=== PATIENT | female | born 1960 | race Caucasian/White ===

== ENCOUNTER 2017-10-03 05:47 | Outpatient (CLI) | payer OTHER ==
[~2017-10-03] VITALS: Ht 165.1 cm; Wt 88.1 kg
[~2017-10-03 05:47] MED LIST: ASP81TEC PO; ATRV10T PO; BACL10TA PO; BISO1TAB39 PO; BISO1TAB41; BUPR300T; BUPR300T PO; CIPR-225 PO; CPR500T PO; DCS100C PO; DILT120C PO; FLUO15CR4; HYDR-3816 PO; HYDR25TA4 PO; HYOS0.1234; LEVO200T PO; LEVO200T30 PO; LEVO750T39 PO; METF500T4 PO; MONT10TA21 PO; NF-ESOM40C; NF-ESOM40C PO; PHEN200T27 PO; PROM25TA14 PO; PROP1TAB77; SITA100T; SITA100T PO; Synthroid; TRIA1TAB2; TRIA1TAB2 PO; VELVET GLOVE PO; VITA1CAP59 PO
[2017-10-03] MEDS ORDERED: BISO1TAB40 PO (15:05)
[2017-10-03] MEDS ORDERED: SITA1TAB6 PO (15:05)
[2017-10-03] MEDS ORDERED: DULA1.5P2 SQ (15:05)
[2017-10-03] MEDS ORDERED: LEVO200T6 PO ×2 (15:05)
[2017-10-03] MEDS ORDERED: DILT120C53 PO (15:05)
[2017-10-03] MEDS ORDERED: MELO15TA39 PO (15:05)
[2017-10-03] MEDS ORDERED: BUPR300T51 PO (15:05)
[2017-10-03] MEDS ORDERED: TRIM100T PO (15:08)
[2017-10-04] MEDS ORDERED: OMEP20CA12 PO (11:38)
== END 2017-10-03 15:11 ==
LOC: PREOP 05:47
PROVIDERS: ATTEND Internal Medicine
DX: Z01.818 Encounter for other preprocedural examination (principal); R07.9 Chest pain, unspecified; K22.4 Dyskinesia of esophagus

== ENCOUNTER → 2017-10-22 | Outpatient (CLI) | payer OTHER ==
[~2017-10-22] MED LIST changes: +BISO1TAB40 PO; +BUPR300T51 PO; +DILT120C53 PO; +DULA1.5P2 SQ; +LEVO200T6 PO; +MELO15TA39 PO; +OMEP20CA12 PO; +SITA1TAB6 PO; +TRIM100T PO
--- NOTE | 2017-10-23 19:22 | Diagnostic Imaging Report ---
Bilateral screening mammogram 2D views with tomosynthesis. The current study was also evaluated with a Computer Aided Detection (CAD) system. INDICATION: Screening. No current complaints stated on the questionnaire. COMPARISON: 10/04/16. FINDINGS: The breasts are composed of heterogeneously dense parenchyma which may decrease mammographic sensitivity. Benign-appearing calcifications are seen. Allowing for technique and positional differences, no suspicious change is seen. IMPRESSION: No significant change. ACR BI-RADS Category 2: Benign findings. Result letter will be mailed to the patient. Note: At least 10% of breast cancer is not imaged by mammography. Dictated on workstation # [id number]
== END ==
LOC: RAD 13:35
PROVIDERS: ATTEND Family Medicine
DX: Z12.31 Encounter for screening mammogram for malignant neoplasm of breast (principal)
CPT/HCPCS: 77067

== ENCOUNTER → 2019-12-22 | Outpatient (CLI) | payer BC, OTHER ==
[~2019-12-22] MED LIST changes: +HYDR-34 PO; -HYDR-3816 PO; +METF-397 PO; -METF500T4 PO; +OMEP-280 PO; -OMEP20CA12 PO
--- NOTE | 2019-12-22 09:46 | Diagnostic Imaging Report ---
INDICATION: Routine screening. COMPARISON: 10/22/2017 and 10/04/2016. TECHNIQUE: 2D and 3D bilateral screening mammography was performed with CAD. FINDINGS: Scattered fibroglandular densities are identified bilaterally. Benign calcifications are scattered throughout both breasts. No mass or malignant appearing microcalcifications are seen. The axillae are unremarkable. IMPRESSION: No mammographic features suspicious for malignancy are identified. ACR BI-RADS Category 2: Benign findings. Result letter will be mailed to the patient. Note: At least 10% of breast cancer is not imaged by mammography. Dictated by: Dictated on workstation # [id number]
== END ==
LOC: RAD 08:05
PROVIDERS: ATTEND Nurse Practitioner Family
DX: Z12.31 Encounter for screening mammogram for malignant neoplasm of breast (principal)
CPT/HCPCS: 77067

== ENCOUNTER → 2021-02-08 | Outpatient (CLI) | payer BC ==
[~2021-02-08] MED LIST changes: -BUPR300T51 PO; +BUPR300T98 PO; -OMEP-280 PO; +OMEP20CA18 PO
--- NOTE | 2021-02-08 09:10 | Diagnostic Imaging Report ---
INDICATION: Routine screening. COMPARISON: 12/22/2019 and 10/22/2017. TECHNIQUE: 2D and 3D bilateral screening mammography was performed with CAD. FINDINGS: Both breasts remain heterogeneously dense, limiting the sensitivity of mammography. There are benign calcifications scattered throughout both breasts. No mass or malignant appearing microcalcifications are seen. The axillae are unremarkable. IMPRESSION: No mammographic features suspicious for malignancy are identified. ACR BI-RADS Category 2: Benign findings. Result letter will be mailed to the patient. Note: At least 10% of breast cancer is not imaged by mammography. Dictated by: Dictated on workstation # [id number]
== END ==
LOC: RAD 07:45
PROVIDERS: ATTEND Family Medicine
DX: Z12.31 Encounter for screening mammogram for malignant neoplasm of breast (principal)
CPT/HCPCS: 77063; 77067

== ENCOUNTER 2021-09-27 09:45 | Inpatient (IN) | payer BC ==
--- NOTE | 2021-09-13 13:12 | HISTORY AND PHYSICAL ---
DATE OF SERVICE: ADMISSION HISTORY AND PHYSICAL This will be for inpatient admission on 09/27/2021 for right total knee arthroplasty. The patient will require regular inpatient admission for pain management and need for physical therapy. HISTORY: The patient is a 61-year-old female with longstanding right knee pain. She has undergone treatment with arthroscopy, anti-inflammatories and injections without relief. Radiographs reveal severe medial patellofemoral arthrosis. She reports progressive loss of function and because of this, I elected to proceed with surgical intervention. REVIEW OF SYSTEMS: No chest pain, no shortness of breath, no dysuria. PAST MEDICAL HISTORY: Diabetes, fatigue, hypertension, hypothyroidism, sleep apnea. PAST SURGICAL HISTORY: section, carpal tunnel, hysterectomy, knee arthroscopy, sinus ectopic , cholecystectomy, herniorrhaphy. FAMILY HISTORY: Significant for schizophrenia, cardiovascular disease, breast cancer. PRIMARY CARE PROVIDER: Dr. Kaur. MEDICATIONS: NitroMist, Trulicity, Synthroid, Cardizem, Wellbutrin. ALLERGIES: No known drug allergies. SOCIAL HISTORY: The patient denies alcohol and tobacco use. PHYSICAL EXAMINATION: GENERAL: The patient is well developed, well nourished, in no acute distress. HEENT: Normocephalic, atraumatic. Pupils are equal, round, reactive to light. Oropharynx is clear. NECK: Supple, no lymphadenopathy. LUNGS: Clear to auscultation bilaterally. HEART: Regular rate and rhythm. ABDOMEN: Soft, nontender, nondistended. EXTREMITIES: The right knee demonstrates varus alignment. She has marked patellofemoral crepitus with patellar loading. She is tender along the medial femoral epicondyle. She has pain medially with Eros's. Range of motion is 0/0/135. No varus or valgus laxity. Negative anterior and posterior drawer. IMPRESSION: Severe right knee osteoarthritis. PLAN: Right total knee arthroplasty. The risks, benefits, options, ramifications and recovery were discussed at length with the patient. She understands and wishes to proceed. Job ID: [id number] DocumentID: [id number] Dictated Date: 09/13/2021 11:42:01 School Counsellor Date: 09/13/2021 13:12:19 Dictated By: REJI ANTONY MD
[~2021-09-27] VITALS: Ht 162 cm; Wt 76.7 kg
[2021-09-28] MEDS ORDERED: [UNRECOGNIZED DRUG - CODE] TL (15:04)
[2021-09-28] MEDS ORDERED: LEVO137T2 PO (15:04)
[2021-09-28] MEDS ORDERED: LIOTHYSO5 PO (15:04)
[2021-10-11] VITALS (9 sets, daily range): BP systolic 117–160; BP diastolic 65–95
[2021-10-11] MEDS ORDERED: CEFUROXIME INJECTION 1,500 MG in WATER (STERILE) FOR INJECTION 15 ML IV ONE (07:30)
[2021-10-11] MEDS ORDERED: morphine PCA 100 MG/100 ML BAG IV PRN (07:30)
[2021-10-11] MEDS ORDERED: NALOXONE 0.4 MG/ML 1 ML (NARCAN) VIAL IV PRN (07:30)
[2021-10-11] MEDS ORDERED: ONDANSETRON 4 MG/2 ML (SDV) Z0FRAN IVP PRN ×2 (07:30→11:30)
--- NOTE | 2021-10-11 07:36 | Progress Note-Pre Operative ---
Pre-Operative Progress Note H&P Reviewed The H&P was reviewed, patient examined and no changes noted. Date Seen by Provider: Oct 11, 2021 Time Seen by Provider: 07:36 Date H&P Reviewed: Oct 11, 2021 Time H&P Reviewed: 07:11 Pre-Operative Diagnosis: right knee primary osteoarthritis REJI ANTONY MD Oct 11, 2021 07:36
--- NOTE | 2021-10-11 07:37 | Progress Note-Post Operative ---
Post-Operative Progess Note Surgeon (s)/Banking Manager (s) Surgeon REJI ANTONY MD Banking Manager: Skinny Herring Pre-Operative Diagnosis right knee primary osteoarthritis Post-Operative Diagnosis right knee primary osteoarthritis Procedure & Operative Findings Date of Procedure 10/11/21 Procedure Performed/Findings right total knee arthroplasty Anesthesia Type GETA Estimated Blood Loss Estimated blood loss (mL): minimal Specimens/Packing Specimens Removed none Packing: none REJI ANTONY MD Oct 11, 2021 07:37
--- NOTE | 2021-10-11 07:56 | D/C HH Face to Face Order ---
D/C Face to Face Orders Reconcile Patient Problems Problems Reviewed?: Yes Instructions for Patient Via [facility], Patient Instructions/FollowUp: three weeks Physician to follow Patient: three weeks Discharge Diet for Home: Regular Diet Patient Data-Allergies,Ht & Wt Patient Allergies: Coded Allergies: No Known Drug Allergies (Unverified , 10/03/17) Height (Feet): 5 Height (Inches): 5.00 Weight (Pounds): 194 Weight (Ounces): 4.0 Home Health Need/Face to Face Date of Face to Face: Oct 11, 2021 Clinical Findings: Muscle weakness, Pain with ambulation, Unsteady gait I have seen Pt [id number]: Yes Discharged To: Home Diagnosis/Conditions: right total knee arthroplasty Patient is Homebound due to: Muscle weakness, Pain w/ambulation Homebound Status Due to the above stated illness, injury or surgical procedure (medical condition or diagnosis) and associated clinical findings, the patient is homebound because of his/her inability to leave home except with aid of a supportive device and/or person AND leaving the home requires a considerable and taxing effort or is medically contraindicated. Pt req the following assistanc: [facility] Nursing Orders Home Health Services Order: Physical Therapy-Evaluate & Treat DC right knee eugenio and apply steri strips 10/25/21 Therapy Orders Therapy Orders: Physical Therapy, PT to assess for OT Therapy Specific Orders: Eval assistive deivces, Teach enviro modifications/safety, Gait training, Increase strength/endurance, Provider maintenance therapy, Restore ROM Certify Stmt I certify that this patient is under my care and that I, a nurse practitioner or a physician; a resident programs assistant working with me, had a face to face encounter that - meets the physician face to face encounter requirements with this patient as dated. REJI ANTONY MD Oct 11, 2021 07:56
[2021-10-11] MEDS ORDERED: LIDOCAINE PF 2% 5 ML (XYLOCAINE) VIAL ONE (07:58)
[2021-10-11] MEDS ORDERED: MIDAZOLAM 2 MG/2 ML (VERSED) VIAL ONE (07:58)
[2021-10-11] MEDS ORDERED: SEVOFLURANE (ULTANE) 15 ML INHAL SOLN ONE ×2 (07:58→10:58)
[2021-10-11] MEDS ORDERED: fentaNYL INJ 100 MCG/2 ML AMP ONE (07:58)
[2021-10-11] MEDS ORDERED: proPOfol 200 MG/20 ML (DIPRIVAN) VIAL IV ONE (07:58)
[2021-10-11] MEDS ORDERED: ONDANSETRON 4 MG/2 ML (SDV) Z0FRAN ONE (07:58)
[2021-10-11] MEDS ORDERED: INTRA-ARTICULAR IU ONE ×5 (08:00)
[2021-10-11] MEDS ORDERED: ROPIVACAINE 5MG/ML 30ML VIAL ONE (08:12)
[2021-10-11] MEDS: LACTATED RINGERS 1,000 ML IV PRN ×3 (08:42→11:36)
[2021-10-11] MEDS ORDERED: FAMOTIDINE 20MG/2ML IV (PEPCID) ONE (09:45)
[2021-10-11] MEDS ORDERED: TRANEXAMIC ACID 100 MG/ML 10 ML INJECTION ONE (11:21)
[2021-10-11] MEDS ORDERED: HYDROmorphone 2 MG/ML VIAL (DILAUDID) ONE (11:26)
[2021-10-11] MEDS ORDERED: PROMETHAZINE INJ 25 MG/ML (PHENERGAN) AMP ONE (11:26)
[2021-10-11] MEDS ORDERED: PROMETHAZINE INJ 25 MG/ML (PHENERGAN) AMP IVP ONE (11:30)
[2021-10-11] MEDS ORDERED: HYDROmorphone 2 MG/ML VIAL (DILAUDID) IV ONE (11:30)
[2021-10-11] MEDS ORDERED: LACTATED RINGERS 1,000 ML IV ONE (11:35)
--- NOTE | 2021-10-11 11:40 | Progress Note ---
Standard Progress Note Progress Notes/Assess & Plan Date Seen by a Provider: Oct 11, 2021 Time Seen by a Provider: 11:39 Progress/Assessment & Plan post op check denies paresthesias Radiographs--HW well positioned without fracture RLE--2 plus DP pulse with brisk cap refill. Intact DF and PF of toes and ankle s/p RTKA mobilize as able REJI ANTONY MD Oct 11, 2021 11:40
[2021-10-11] MEDS: NS IV 1000 ML 1,000 ML IV SCH ×3 (13:22→23:07)
--- NOTE | 2021-10-11 14:33 | Diagnostic Imaging Report ---
INDICATION: Right knee replacement. TIME OF EXAM: 11:26 a.m. FINDINGS: Two views of the right knee demonstrate postop changes of total knee arthroplasty. The prosthetic elements are in good position without fracture or loosening. There are overlying skin eugenio. IMPRESSION: Satisfactory postop appearance to the right knee. Dictated by: Dictated on workstation # [id number]
[2021-10-11] MEDS: oxyCODONE/APAP 5/325MG (PERCOCET 5) TABLET PO PRN ×3 (14:59→23:07)
--- NOTE | 2021-10-11 15:02 | Physical Therapy Evaluation ---
PT Evaluation-General Medical Diagnosis Admission Date Oct 11, 2021 at 07:24 Medical Diagnosis: Right TKA Onset Date: Oct 11, 2021 Therapy Diagnosis Therapy Diagnosis: Gait deficit, strength deficit Height/Weight Height (Feet): 5 Height (Inches): 5.00 Weight (Pounds): 194 Weight (Ounces): 4.0 Precautions Precautions/Isolations: Fall Prevention Weight Bear Status Right Lower Extremity: Right Weight Bearing/Tolerated Referral Physician: Dr. Anne Reason for Referral: Evaluation/Treatment Social History Home: [facility] Current Living Status: Spouse Entry Into Home: Stairs With Railing PT Steps Into Home: 5 PT Steps Inside Home: 15 Patient reports she has an upstairs and a basement, but can stay on the first floor. Prior Prior Level of Function SCALE: Activities may be completed with or without assistive devices. 7-Lzcpbkzmdp-wkfspug completes the activity by him/herself with no assistance from a helper. 5-Set-up or Clean-up Assistance-helper sets up or cleans up; patient completes activity. [place] assists only prior to or following the activity. 4-Supervision or Touching Assistance-helper provides verbal cues and/or touching/steadying and/or contact guard assistance as patient completes activity. Assistance may be provided throughout the activity or intermittently. 3-Partial/Moderate Assistance-helper does LESS THAN HALF the effort. [place] lifts, holds or supports trunk or limbs, but provides less than half the effort. 2-Substantial/Maximal Assistance-helper does MORE THAN HALF the effort. [place] lifts or holds trunk or limbs and provides more than half the effort. 4-Yljkyhjkt-couzqx does ALL the effort. Patient does none of the effort to complete the activity. Or, the assistance of 2 or more helpers is required for the patient to complete the activity. If activity was not attempted, code reason: 7-Patient Refused. 9-Not Applicable-not attempted and the patient did not perform the activity before the current illness, exacerbation or injury. 10-Not Attempted due to Environmental Limitations-(lack of equipment, weather restraints, etc.). 88-Not Attempted due to Medical Conditions or Safety Concerns. Bed Mobility: 6 Transfers (B,C,W/C): 6 Gait: 6 Stairs: 6 Indoor Mobility (Ambulation): Independent Stairs: Independent Prior Devices Use: None PT Evaluation-Current Subjective Patient lying supine in bed upon PT arrival, agreeable to treatment. Patient rates pain at 5/10 in right knee. Objective Patient Orientation: Person, Place, Time, Situation ROM/Strength ROM Lower Extremities Right knee AROM flexion 80 degrees; Extension 10 degrees from neutral Strength Lower Extremities Left LE 4/5 grossly ; Right knee N/A secondary to surgery Sensory Vision: Functional Hearing: Functional Sensation Right Lower Extremit: Intact Sensation Left Lower Extremity: Intact Transfers Roll Left to Right (QC): 4 Sit to Lying (QC): 4 Lying to Sitting/Side of Bed(Q: 4 Sit to Stand (QC): 3 Chair/Hjz-uz-Gfgna Xfer(QC): 3 Toilet Transfer (QC): 3 Gait Does the Patient Walk?: Yes Mode of Locomotion: Walk Anticipated Mode of Locomotion: Walk Walk 10 feet (QC): 3 Distance: 10 feet Gait Assistive Device: FWW Balance Sitting Static: Good Sitting Dynamic: Good Standing Static: Fair Standing Dynamic: Fair Assessment/Needs Patient tolerated treatment well. Demonstrates good overall mobility given surgery. Patient performs all observed bed mobility and transfers with SBA/min A. Patient ambulates 3 feet to the BSC, then back to the bed to be fit with CPM. CPM settings at 0 degrees extension and 90 degrees flexion. Patient then transferred back to the chair. Patient ambulates 10 feet with FWW, with CGA and verbal cues for safety, progression, posture and balance. Patient in chair post treatment with all needs met, nursing notified, call light in hand. Nurse instructed to apply CPM for 2 hours to right knee once patient has returned to bed. Rehab Potential: Good PT Fpc Goals Knife Grinder Goals PT Fpc Goals Time Frame: Oct 25, 2021 Roll Left & Right (QC): 6 Sit to Lying (QC): 6 Lying-Sitting on Side/Bed(QC): 6 Sit to Stand (QC): 6 Chair/Rwv-zz-Vdzgc Xfer(QC): 6 Toilet Transfer (QC): 6 Car Transfer (QC): 6 Does the Patient Walk: Yes Walk 10 feet (QC): 5 Walk 50ft with 2 Turns (QC): 5 Walk 150 ft (QC): 5 1 Step (curb) (QC): 4 4 Steps (QC): 4 12 Steps (QC): 4 PT Plan Problem List Problem List: Activity Tolerance, Functional Strength, Safety, Balance, Gait, Transfer, Bed Mobility, ROM Treatment/Plan Treatment Plan: Continue Plan of Care Treatment Plan: Bed Mobility, Education, Functional Activity Judah, Functional Strength, Group Therapy, Gait, Safety, Therapeutic Exercise, Transfers Treatment Duration: Nov 29, 2021 Frequency: 11 times per week Estimated Hrs Per Day: .25 hour per day Patient and/or Family Agrees t: Yes Safety Risks/Education Patient Education: Gait Training, Transfer Techniques, Reviewed Precautions Teaching Recipient: Patient Teaching Methods: Demonstration, Discussion Response to Teaching: Verbalize Understanding, Return Demonstration Time/GCodes Time In: 1415 Time Out: 1456 Total Billed Treatment Time: 41 Total Billed Treatment Visit, Eval mod, Gait, CPM, CPM pads SAW POOLE PT Oct 11, 2021 15:02
[2021-10-11] MEDS: SENNA W/DOCUSATE (SENOKOT S) TABLET PO SCH ×2 (15:54→20:31)
--- NOTE | 2021-10-11 16:32 | OPERATIVE REPORT ---
DATE OF SERVICE: 10/11/2021 PREOPERATIVE DIAGNOSIS: Right knee primary osteoarthritis. POSTOPERATIVE DIAGNOSIS: Right knee primary osteoarthritis. PROCEDURE PERFORMED: Right total knee arthroplasty. STATEMENT OF MEDICAL NECESSITY: The patient is a 61-year-old female with longstanding progressive right knee pain. Radiographs revealed severe medial and patellofemoral arthrosis. She has undergone treatment with multiple injections as well as arthroscopy without relief. She reported progressive loss of function. Because of this, I elected to proceed with surgical intervention. DESCRIPTION OF PROCEDURE: After risks and benefits of the procedure were discussed and questions were answered, an informed consent was signed and placed on the chart. The operative site was confirmed in the preoperative holding area initialed by the surgeon. The patient was then transferred to the operating room and after adequate levels of general endotracheal anesthetic were obtained, a timeout was called, confirming the operative site. Right lower extremity was prepped and draped in the usual sterile fashion. With the leg elevated and the knee flexed, the tourniquet was inflated to 300 mmHg. A standard anterior approach was utilized. Hemostasis was obtained with cautery. A medial parapatellar arthrotomy was performed leaving 1 cm cuff on the patella for later reattachment. A portion of the fat pad was resected. A subperiosteal release was performed in the proximal medial tibia being careful to stay on the bony surface. The ACL was resected. The intramedullary guide was passed into the femoral canal. The distal cutting block was placed. The distal cut was made and the femur sized to a size 4. The 4 cutting block was placed parallel to the epicondylar axis and cuts were made from posterior to anterior. Subperiosteal release was then carefully performed on the posterior distal femur, being careful to stay on the bony surface. The intramedullary guide was then passed into the tibia. The drop frank transected the intermalleolar axis. The cut was made. The baseplate was placed and the drop frank transected the intermalleolar axis. This was prepared with the drill and keel punch. The 10 mm insert was placed and the femoral trial was placed and the trochlear cut was made. The patella was then prepared by resecting 10 mm off the undersurface. The peg guide was placed and the peg holes were drilled. The 32 trial was placed. The knee was taken through range of motion. Full extension was easily obtained under 20 degrees of flexion with gravity was easily obtained. The patella tracked well. There was no anterior/posterior laxity in the flexion or extension. There was a trace varus laxity in full extension. No valgus laxity. The trials were removed. The joint was irrigated with pulse lavage. Bone ends were irrigated and dried. The periarticular block was placed in the posterior capsule, medial and lateral retinaculum, extensor mechanism, and subcutaneous tissues. The bone ends were irrigated and dried and the tibial baseplate was cemented into position. Excessive cement was removed, the superior surface was irrigated and dried and the polyethylene insert was placed. The distal femur was irrigated and dried and the femoral prosthesis was cemented into position. Excessive cement was removed. The knee was brought out into full extension until cement had cured. The undersurface of the patella was irrigated and dried and the patellar button was cemented into position. Excessive cement was removed. The knee was held in full extension until the cement had cured. Once the cement had cured, the knee was taken through range of motion. Full extension was easily obtained, 120 degrees of flexion with gravity was easily obtained. The patella tracked well. There was no anterior/posterior laxity in flexion or extension and there was a trace varus laxity in full extension, but no valgus laxity. The joint was further irrigated with a pulse lavage. Arthrotomy was closed with #2 Tevdek in a itefon-ai-mucbj interrupted fashion. The knee was flexed and the repair was stable. The subcutaneous tissues were irrigated using a total of 6 liters throughout the procedure. A 0 Vicryl was used for the deep subcutaneous tissue, 2-0 Vicryl for the superficial subcutaneous tissue, and eugenio were used on the skin. A soft dressing was applied. The tourniquet was deflated. The patient was transferred to the recovery room awake and in a stable condition. Job ID: [id number] DocumentID: [id number] Dictated Date: 10/11/2021 11:19:25 Component Engineer Date: 10/11/2021 16:31:58 Dictated By: REJI ANTONY MD
[2021-10-11] MEDS: CEFUROXIME INJECTION 750 MG in WATER (STERILE) FOR INJECTION 10 ML IV SCH (17:25)
--- NOTE | 2021-10-11 18:25 | Consultation ---
History of Present Illness History of Present Illness Patient Consulted On(sincere/time) 10/11/21 18:25 Date Seen by Provider: Oct 11, 2021 Time Seen by Provider: 18:25 Reason for Visit: KNEE PAIN WITH ARTHRITIS History of Present Illness PT IS A 61 Y/O FEMALE WHO IS KNOWN TO ME FROM CLINIC. SHE PRESENTS TO THE HOSPITAL FOR A RIGHT KNEE REPLACEMENT. Allergies and Home Medications Allergies Coded Allergies: No Known Drug Allergies (Unverified , 10/03/17) Patient Home Medication List Bupropion HCl (Bupropion Xl) 300 Mg Tab.er.24h, 300 MG PO DAILY, (Reported) Entered as Reported by: ALISA RDZ on 10/03/17 1505 Last Action: Reviewed Diltiazem HCl (Cartia Xt) 120 Mg Cap.er.24h, 120 MG PO DAILY, (Reported) Entered as Reported by: ALISA RDZ on 10/03/17 1505 Last Action: Continued Dulaglutide (Trulicity) 1.5 Mg/0.5 Ml Pen.injctr, 1.5 MG SQ WEEKLY, (Reported) Entered as Reported by: ALISA RDZ on 10/03/17 1505 Last Action: Reviewed Hydrochlorothiazide (Hydrochlorothiazide) 25 Mg Tablet, 25 MG PO DAILY, (Reported) Entered as Reported by: MEERA GUERRA on 07/17/16 0816 Last Action: Continued Levothyroxine Sodium (Levothyroxine Sodium) 137 Mcg Tablet, 137 MCG PO DAILY, (Reported) Entered as Reported by: MEGGAN SMITH on 09/28/21 150 Last Action: Reviewed Liothyronine Sodium (Cytomel) 5 Mcg Tablet, 5 MCG PO MoWeFr, (Reported) Entered as Reported by: MEGGAN SMITH on 09/28/21 150 Last Action: Reviewed Nitroglycerin (Nitromist) 4.1 Gm Goodwin, 1 SPRAY TL UD PRN for ESOPHAGEAL SPASMS, (Reported) Entered as Reported by: MEGGAN SMITH on 09/28/21 150 Past Xmxtjdp-Nsrutg-Fsmufl Hx Patient Social History Tobacco Use?: No Alcohol Use?: No Pt feels they are or have been: No Immunizations Up To Date Date of Influenza Vaccine: Sep 27, 2021 First/Initial COVID19 Vaccinat: march Second COVID19 Vaccination Sincere: march Tetanus Booster (TDap): Unknown PED Vaccines UTD: Yes Seasonal Allergies Seasonal Allergies: Yes Current Status status: No status: No Advance Directives: No Communicates: Verbally Primary Language: Tajik Preferred Spoken Language: Tajik Is interpretation needed?: No Sensory deficits: Vision impairment Past Medical History Surgeries: Section, Gallbladder, Hysterectomy, Orthopedic Pulmonary Embolism, Sleep Apnea Currently Using CPAP: Yes Hypertension G[employer] 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 4.0oz. [id number]; 29.22 BMI Method:Stated SOHEILA ABERNATHY MD Oct 11, 2021 18:25
[2021-10-12] VITALS: BP 120/57
[2021-10-12] MEDS: CEFUROXIME INJECTION 750 MG in WATER (STERILE) FOR INJECTION 10 ML IV SCH (01:36)
[2021-10-12] MEDS: oxyCODONE/APAP 5/325MG (PERCOCET 5) TABLET PO PRN ×5 (03:30→21:30)
[2021-10-12 04:00] VITALS: BP 115/50
[2021-10-12] MEDS: MULTIVIT W/MINERALS TAB (THERAGRAN M) PO SCH (05:49)
[2021-10-12 06:02] LABS: HEMOGLOBIN 10.9 g/dL (11.5-16.0)
--- NOTE | 2021-10-12 07:52 | Progress Note ---
Standard Progress Note Progress Notes/Assess & Plan Date Seen by a Provider: Oct 12, 2021 Time Seen by a Provider: 07:51 Progress/Assessment & Plan post op check denies paresthesias Radiographs--HW well positioned without fracture RLE--2 plus DP pulse with brisk cap refill. Intact DF and PF of toes and ankle s/p RTKA mobilize as able Final Diagnosis no complaints Vital Signs Date Time Temp Pulse Resp B/P (MAP) Pulse Ox O2 Delivery O2 Flow Rate FiO2 10/12/21 05:17 18 10/12/21 04:00 36.0 92 18 115/50 (71) 98 NIV CPAP 10/12/21 00:00 36.0 92 19 120/57 (78) 100 NIV CPAP 10/11/21 21:00 Room Air 10/11/21 19:45 36.1 75 16 117/65 (82) 98 Room Air 10/11/21 15:25 36.1 78 16 125/75 (92) 98 Room Air 10/11/21 12:05 Nasal Cannula 2 10/11/21 12:00 36.2 82 16 138/72 (94) 100 Room Air 10/11/21 12:00 16 147/90 (109) 98 Nasal Cannula 2 10/11/21 11:50 16 160/95 (116) 100 Nasal Cannula 2 10/11/21 11:50 Nasal Cannula 4 10/11/21 11:40 16 147/65 (92) 100 Nasal Cannula 4 10/11/21 11:35 Nasal Cannula 4 10/11/21 11:30 14 152/80 (104) 100 Nasal Cannula 4 10/11/21 11:20 18 139/78 (98) 99 OxyMask 6 10/11/21 11:20 OxyMask 6 10/11/21 11:12 36.6 16 126/68 (87) 95 OxyMask 8 10/11/21 11:12 OxyMask 8 10/11/21 07:55 95 10/11/21 07:55 36.0 92 18 133/79 (97) 95 Room Air I & O 10/12/21 07:00 Intake Total 3425 ml Balance 3425 ml Laboratory Tests Test 10/12/21 05:33 Range/Units Hemoglobin 10.9 L 11.5-16.0 g/dL Hematocrit 34 L 35-52 % RLE--dressing intact. Intact DF and PF of toes and ankle no calf tenderness. Neg Vsayls /p RTKA PT/OT REJI ANTONY MD Oct 12, 2021 07:52
[2021-10-12 08:00] VITALS: BP 118/55
--- NOTE | 2021-10-12 08:58 | Physical Therapy Daily Note ---
PT Daily Note-Current Subjective Patient in recliner pre tx, agrees to PT, has 5/10 pain in right knee but it is 10/10 by the end of tx, she says her nurse is supposed to bring her some pain meds. Appearance Patient in recliner post tx with nurse call, phone, tray, all needs met. Mental Status Patient Orientation: Person, Place, Situation Attachments: Polar Pack, IV Transfers SCALE: Activities may be completed with or without assistive devices. 3-Ophudegvlz-bvzxbgj completes the activity by him/herself with no assistance from a helper. 5-Set-up or Clean-up Assistance-helper sets up or cleans up; patient completes activity. [place] assists only prior to or following the activity. 4-Supervision or Touching Assistance-helper provides verbal cues and/or touching/steadying and/or contact guard assistance as patient completes activity. Assistance may be provided throughout the activity or intermittently. 3-Partial/Moderate Assistance-helper does LESS THAN HALF the effort. [place] lifts, holds or supports trunk or limbs, but provides less than half the effort. 2-Substantial/Maximal Assistance-helper does MORE THAN HALF the effort. [place] lifts or holds trunk or limbs and provides more than half the effort. 4-Nabkntevl-zolenu does ALL the effort. Patient does none of the effort to complete the activity. Or, the assistance of 2 or more helpers is required for the patient to complete the activity. If activity was not attempted, code reason: 7-Patient Refused. 9-Not Applicable-not attempted and the patient did not perform the activity before the current illness, exacerbation or injury. 10-Not Attempted due to Environmental Limitations-(lack of equipment, weather restraints, etc.). 88-Not Attempted due to Medical Conditions or Safety Concerns. Sit to Stand (QC): 4 Chair/Pvw-ut-Rbdmr Xfer(QC): 4 CGA Weight Bearing Right Lower Extremity: Right Weight Bearing/Tolerated Gait Training Distance: 150' Walk 10 feet (QC): 4 Walk 50 ft with 2 Turns(QC): 4 Walk 150 ft (QC): 4 Gait Persons Needed: 1 Gait Assistive Device: FWW slow but steady ambulation, decreased extension on the right knee, fair step- through Exercises Supine Ex: Quad Set, Straight leg raise Supine Reps: 20 (done in recliner with legs elevated) Seated Therapy Exercises: Ankle pumps, Long arc quads, Hip flexion Seated Reps: 20 Treatments transfers, ambulation, LE exercise Assessment Current Status: Fair Progress improving ambulation, patient states she still has numbness in her right leg PT Patient Escort Goals Mcc Goals PT Patient Escort Goals Time Frame: Oct 25, 2021 Roll Left & Right (QC): 6 Sit to Lying (QC): 6 Lying-Sitting on Side/Bed(QC): 6 Sit to Stand (QC): 6 Chair/Srf-wc-Ihsrj Xfer(QC): 6 Toilet Transfer (QC): 6 Car Transfer (QC): 6 Does the Patient Walk: Yes Walk 10 feet (QC): 5 Walk 50ft with 2 Turns (QC): 5 Walk 150 ft (QC): 5 1 Step (curb) (QC): 4 4 Steps (QC): 4 12 Steps (QC): 4 PT Plan Problem List Problem List: Activity Tolerance, Functional Strength, Safety, Balance, Gait, Transfer, Bed Mobility, ROM Treatment/Plan Treatment Plan: Continue Plan of Care Treatment Plan: Bed Mobility, Education, Functional Activity Judah, Functional Strength, Group Therapy, Gait, Safety, Therapeutic Exercise, Transfers Treatment Duration: Nov 29, 2021 Frequency: 11 times per week Estimated Hrs Per Day: .25 hour per day Patient and/or Family Agrees t: Yes Safety Risks/Education Patient Education: Gait Training, Transfer Techniques, Correct Positioning, Safety Issues Teaching Recipient: Patient Teaching Methods: Demonstration, Discussion Response to Teaching: Reinforcement Needed Time/GCodes Time In: 830 Time Out: 0845 Total Billed Treatment Time: 14 Total Billed Treatment 1 visit FA ERIBERTO MUNOZ PT Oct 12, 2021 08:58
[2021-10-12] MEDS: ENOXAPARIN 30 MG/0.3 ML (LOVENOX) SYR SC SCH ×2 (09:13→20:16)
[2021-10-12] MEDS: SENNA W/DOCUSATE (SENOKOT S) TABLET PO SCH ×2 (09:13→20:16)
[2021-10-12] MEDS: ASPIRIN E.C. 81 MG (ECOTRIN) TAB PO SCH (09:13)
[2021-10-12] MEDS: dilTIAZem120 MG (CARDIZEM CD) CAP PO SCH (09:14)
[2021-10-12] MEDS: NS IV 1000 ML 1,000 ML IV SCH ×2 (11:17→23:52)
--- NOTE | 2021-10-12 11:28 | Physical Therapy Daily Note ---
PT Daily Note-Current Subjective Patient in bed pre tx, agrees to PT, has unrated right knee pain but states it is much better since she got pain meds. Appearance Patient in bed post tx with nurse call, phone, tray, all needs met, CPM donned. Mental Status Patient Orientation: Person, Place, Situation Attachments: Polar Pack, IV Transfers SCALE: Activities may be completed with or without assistive devices. 6-Mktwunwnmb-lggvjaz completes the activity by him/herself with no assistance from a helper. 5-Set-up or Clean-up Assistance-helper sets up or cleans up; patient completes activity. [place] assists only prior to or following the activity. 4-Supervision or Touching Assistance-helper provides verbal cues and/or touching/steadying and/or contact guard assistance as patient completes activity. Assistance may be provided throughout the activity or intermittently. 3-Partial/Moderate Assistance-helper does LESS THAN HALF the effort. [place] lifts, holds or supports trunk or limbs, but provides less than half the effort. 2-Substantial/Maximal Assistance-helper does MORE THAN HALF the effort. [place] lifts or holds trunk or limbs and provides more than half the effort. 9-Bgnncvvdb-xoqeyd does ALL the effort. Patient does none of the effort to complete the activity. Or, the assistance of 2 or more helpers is required for the patient to complete the activity. If activity was not attempted, code reason: 7-Patient Refused. 9-Not Applicable-not attempted and the patient did not perform the activity before the current illness, exacerbation or injury. 10-Not Attempted due to Environmental Limitations-(lack of equipment, weather restraints, etc.). 88-Not Attempted due to Medical Conditions or Safety Concerns. Roll Left & Right (QC): 6 Sit to Lying (QC): 6 Lying to Sitting/Side of Bed(Q: 6 Sit to Stand (QC): 4 Chair/Seg-mv-Dyhgp Xfer(QC): 4 Weight Bearing Right Lower Extremity: Right Weight Bearing/Tolerated Gait Training Distance: 300' Walk 10 feet (QC): 4 Walk 50 ft with 2 Turns(QC): 4 Walk 150 ft (QC): 4 Gait Persons Needed: 1 Gait Assistive Device: FWW improving endurance, less pain, slight limp, better step through Exercises Supine Ex: Heel Slides Supine Reps: 20 Seated Therapy Exercises: Ankle pumps, Long arc quads Seated Reps: 20 Treatments bed mobility and transfers, ambulation, LE exercise Assessment Current Status: Fair Progress improving endurance, decreased pain PT Intermediate Goals Intermediate Goals PT Brake Liner Goals Time Frame: Oct 25, 2021 Roll Left & Right (QC): 6 Sit to Lying (QC): 6 Lying-Sitting on Side/Bed(QC): 6 Sit to Stand (QC): 6 Chair/Vky-ly-Cddsg Xfer(QC): 6 Toilet Transfer (QC): 6 Car Transfer (QC): 6 Does the Patient Walk: Yes Walk 10 feet (QC): 5 Walk 50ft with 2 Turns (QC): 5 Walk 150 ft (QC): 5 1 Step (curb) (QC): 4 4 Steps (QC): 4 12 Steps (QC): 4 PT Plan Problem List Problem List: Activity Tolerance, Functional Strength, Safety, Balance, Gait, Transfer, Bed Mobility, ROM Treatment/Plan Treatment Plan: Continue Plan of Care Treatment Plan: Bed Mobility, Education, Functional Activity Judah, Functional Strength, Group Therapy, Gait, Safety, Therapeutic Exercise, Transfers Treatment Duration: Nov 29, 2021 Frequency: 11 times per week Estimated Hrs Per Day: .25 hour per day Patient and/or Family Agrees t: Yes Safety Risks/Education Patient Education: Gait Training, Transfer Techniques, Correct Positioning, Safety Issues Teaching Recipient: Patient Teaching Methods: Demonstration, Discussion Response to Teaching: Reinforcement Needed Time/GCodes Time In: 1103 Time Out: 1120 Total Billed Treatment Time: 17 Total Billed Treatment 1 visit FA 20' ERIBERTO TORRES PT Oct 12, 2021 11:28
--- NOTE | 2021-10-12 11:39 | Occupational Therapy Eval ---
OT Evaluation-General/PLF Medical Diagnosis Admission Date Oct 11, 2021 at 07:24 Medical Diagnosis: Right TKA Onset Date: Oct 11, 2021 Therapy Diagnosis Therapy Diagnosis: decreased ADL status Height/Weight Height (Feet): 5 Height (Inches): 5.00 Weight (Pounds): 194 Weight (Ounces): 4.0 Precautions Precautions/Isolations: Fall Prevention Referral Physician: Dr. Anne Referral Reason: Evaluation/Treatment Medical History Additional Medical History Diabetes, fatigue, hypertension, hypothyroidism, sleep apnea. section, carpal tunnel, hysterectomy, knee arthroscopy, sinus ectopic , cholecystectomy, herniorrhaphy. Current History s/p R TKA 10/11/21 Social History Home: Multilevel Current Living Status: Spouse Entry Into Home: Stairs With Railing Steps Into Home: 5 Steps Inside Home: 15 ADL-Prior Level of Function SCALE: Activities may be completed with or without assistive devices. 1-Yjcihidbvp-duuatzn completes the activity by him/herself with no assistance from a helper. 5-Set-up or Clean-up Assistance-helper sets up or cleans up; patient completes activity. [place] assists only prior to or following the activity. 4-Supervision or Touching Assistance-helper provides verbal cues and/or touching/steadying and/or contact guard assistance as patient completes activity. Assistance may be provided throughout the activity or intermittently. 3-Partial/Moderate Assistance-helper does LESS THAN HALF the effort. [place] lifts, holds or supports trunk or limbs, but provides less than half the effort. 2-Substantial/Maximal Assistance-helper does MORE THAN HALF the effort. [place] lifts or holds trunk or limbs and provides more than half the effort. 2-Vyeoorczk-kcpqsc does ALL the effort. Patient does none of the effort to complete the activity. Or, the assistance of 2 or more helpers is required for the patient to complete the activity. If activity was not attempted, code reason: 7-Patient Refused. 9-Not Applicable-not attempted and the patient did not perform the activity before the current illness, exacerbation or injury. 10-Not Attempted due to Environmental Limitations-(lack of equipment, weather restraints, etc.). 88-Not Attempted due to Medical Conditions or Safety Concerns. ADL PLOF Comments Pt reports IND at PLOF with ADLs and functional mobility, no AD Self Care: Independent Functional Cognition: Independent DME/Equipment: Bath Chair, Grab Bars, Shower OT Current Status Subjective Pt in bed, agreeable to OT tx. Pt's just entered room at start of session. Mental Status/Objective Patient Orientation: Person, Place, Time, Situation Attachments: IV Current Upper Extremity ROM WFL Upper Extremity Coordination WFL Upper Extremity Sensation WFL Upper Extremity Strength WFL ADL-Treatment Eating (QC): 6 (per pt report) Oral Hygiene (QC): 6 (based on clincial judgment.) Toileting Hygiene (QC): 4 (SBA per pt report. Pt states only assistance to manage IV pole.) Other Treatments Pt laying in bed, OT educated pt on purpose and benefit of OT, she verbalized understanding. Pt provided information about PLOF and home set up, and participated in UE screen. Pt states she is able to complete ADL tasks around her room, getting in/out of bed and toileting, only requiring assistance with managing IV pole. Pt states she does not have any concerns with her ability to complete ADLs upon returning home, as she has close family support and is able to stay just on the first level of the home. OT discusses ADL modifications pt may need to make at home, including using a telephone messenger for LE clothing. Pt verbalizes understanding. Pt states no further concerns with her ability to complete ADLs, and does not see a need for continued OT services at this time. OT informs pt to have nursing staff reach out to OT if she thinks of anything, she verbalized understanding. Per PT report, pt ambulated 150' & 300' with FWW this morning, QC 4. Post tx, pt in bed, call light in reach and all needs met. Education OT Patient Education: Correct positioning, Energy conservation, Modified ADL techniques, Progress toward Goal/Update tx plan, Purpose of tx/functional activities, Rehab process, Safety issues, Transfer techniques, Use of adapted equipment Teaching Recipient: Patient Teaching Methods: Discussion Response to Teaching: Verbalize Understanding OT Cement Fittings Maker Goals Cement Fittings Maker Goals 1=Demonstrate adherence to instructed precautions during ADL tasks. 2=Patient will verbalize/demonstrate understanding of assistive devices/modifications for ADL. 3=Patient will improve strength/tolerance for activity to enable patient to perform ADL's. OT Education/Plan Problem List/Assessment Assessment: No Skilled OT Needs ID'd No skilled OT services indicated as pt has no concerns with her ability to complete ADLs upon returning home, she has good family support, and she does not wish to have further OT services. D/C from OT. Discharge Recommendations Plan/Recommendations: Discharge/Goals Met Treatment Plan/Plan of Care Patient would benefit from OT for education, treatment and training to promote independence in ADL's, mobility, safety and/or upper extremity function for ADL 's. Plan of Care: ADL Retraining Treatment Duration: Oct 12, 2021 Frequency: 1 time per week (eval only) Rehab Potential: Good Time/GCodes Start Time: 10:05 Stop Time: 10:20 Total Time Billed (hr/min): 15 Billed Treatment Time 1, MELA FELTON OT Oct 12, 2021 11:39
[2021-10-12 11:55] VITALS: BP 116/56
[2021-10-12] MEDS: diphenhydrAMINE 50 MG/ML INJ (BENADRYL) IVP PRN (13:04)
[2021-10-12 16:00] VITALS: BP 101/63
--- NOTE | 2021-10-12 16:15 | Anesthesia-General Post-Op ---
General Patient Condition Mental Status/LOC: Same as Preop Cardiovascular: Satisfactory Nausea/Vomiting: Absent Respiratory: Satisfactory Pain: Controlled Complications: Absent Post Op Complications Complications None Follow Up Care/Instructions Patient Instructions None needed. Anesthesia/Patient Condition Patient Condition Patient is doing well, no complaints, stable vital signs, no apparent adverse anesthesia problems. CONNIE BARBER DO Oct 12, 2021 16:15
--- NOTE | 2021-10-12 16:41 | Progress Note ---
Subjective Subjective Date Seen by Provider: Oct 12, 2021 Time Seen by Provider: 08:00 Patient feels well this morning. Her pain is under adequate control. She denies any N/V, sweats, chills or fever Review of Systems General: No Chills, No Night Sweats Pulmonary: No Dyspnea Cardiovascular: No: Chest Pain Gastrointestinal: No: Nausea, Vomiting Objective Exam Vital Signs Vital Signs Date Time Temp Pulse Resp B/P (MAP) Pulse Ox O2 Delivery O2 Flow Rate FiO2 10/12/21 11:55 36.2 78 20 116/56 (76) 93 Room Air 10/12/21 09:00 Room Air 10/12/21 08:00 36.2 69 20 118/55 (76) 99 Room Air 10/12/21 05:17 18 10/12/21 04:00 36.0 92 18 115/50 (71) 98 NIV CPAP 10/12/21 00:00 36.0 92 19 120/57 (78) 100 NIV CPAP 10/11/21 21:00 Room Air 10/11/21 19:45 36.1 75 16 117/65 (82) 98 Room Air I & O 10/12/21 07:00 Intake Total 3425 ml Balance 3425 ml General Appearance: No Apparent Distress, WD/WN HEENT: PERRL/EOMI, Moist Mucous Membranes Neck: Normal Inspection, Supple Respiratory: Lungs Clear, Normal Breath Sounds, No Accessory Muscle Use, No Respiratory Distress Cardiovascular: Regular Rate, Rhythm, Normal Peripheral Pulses Gastrointestinal: Normal Bowel Sounds, Non Tender, Soft Extremity: Normal Capillary Refill, Other (S/P R Knee total arthroplasty, knee wrapped with brace on) Neurologic/Psychiatric: Alert, Oriented x3, Normal Mood/Affect Skin: Normal Color, Warm/Dry Results Lab Laboratory Tests 10/12/21 05:33: Hemoglobin 10.9L, Hematocrit 34L Assessment/Plan Assessment/Plan Assessment and Plan S/P RTKA Adequate pain management Radiographs--HW well positioned without fracture No sign of infx Continue IV Fluids PT/OT DVT PPX Lovenox JESSIE JHAVERI Oct 12, 2021 16:41
[2021-10-12 19:54] VITALS: BP 97/60
[2021-10-13] VITALS: BP 106/62
[2021-10-13] MEDS: diphenhydrAMINE 50 MG/ML INJ (BENADRYL) IVP PRN (00:14)
[2021-10-13] MEDS: oxyCODONE/APAP 5/325MG (PERCOCET 5) TABLET PO PRN ×4 (01:32→13:47)
[2021-10-13 04:00] VITALS: BP 97/58
[2021-10-13] MEDS: MULTIVIT W/MINERALS TAB (THERAGRAN M) PO SCH (05:54)
[2021-10-13 06:05] LABS: HEMOGLOBIN 9.9 g/dL (11.5-16.0)
--- NOTE | 2021-10-13 06:50 | Progress Note ---
Standard Progress Note Progress Notes/Assess & Plan Date Seen by a Provider: Oct 13, 2021 Time Seen by a Provider: 06:49 Progress/Assessment & Plan post op check denies paresthesias Radiographs--HW well positioned without fracture RLE--2 plus DP pulse with brisk cap refill. Intact DF and PF of toes and ankle s/p RTKA mobilize as able Final Diagnosis no complaints Vital Signs Date Time Temp Pulse Resp B/P (MAP) Pulse Ox O2 Delivery O2 Flow Rate FiO2 10/13/21 06:19 20 10/13/21 04:00 37.2 69 20 97/58 (71) 98 Room Air 10/13/21 00:00 36.5 79 18 106/62 (77) 98 Room Air 10/12/21 21:00 Room Air 10/12/21 19:54 36.4 85 18 97/60 (72) 96 Room Air 10/12/21 16:00 36.6 80 18 101/63 (76) 96 Room Air 10/12/21 11:55 36.2 78 20 116/56 (76) 93 Room Air 10/12/21 09:00 Room Air 10/12/21 08:00 36.2 69 20 118/55 (76) 99 Room Air I & O 10/13/21 07:00 Intake Total 1520 ml Balance 1520 ml Laboratory Tests Test 10/13/21 05:20 Range/Units Hemoglobin 9.9 L 11.5-16.0 g/dL Hematocrit 31 L 35-52 % R knee incision clean and dry. No calf tenderness. Neg Char's s/p R TKA doing well DC after PT today IS REJI ANTONY MD Oct 13, 2021 06:50
[2021-10-13] MEDS ORDERED: morphine INJ 4 MG/ML 1 ML (VIAL/SYRINGE) IVP PRN (07:00)
[2021-10-13 08:00] VITALS: BP 109/58
--- NOTE | 2021-10-13 08:28 | Progress Note ---
Subjective Subjective Date Seen by Provider: Oct 13, 2021 Time Seen by Provider: 07:45 Patient reports feeling well today. She had her last dose of morphine about an hour before our visit and was not in any pain. She is concerned that the percocet is not going to adequately control her pain. She worked with PT nicol rodriguez and felt like she had good mobility. Her BP has been running low but she has not noticed any symptoms from it. She mentioned that she has not received any synthroid since her surgery. Denies any light headedness, syncope, SOA, N/V, sweats or chills. Review of Systems General: No Chills, No Night Sweats Pulmonary: No Dyspnea Cardiovascular: No: Chest Pain Gastrointestinal: No: Nausea, Vomiting Objective Exam Vital Signs Vital Signs Date Time Temp Pulse Resp B/P (MAP) Pulse Ox O2 Delivery O2 Flow Rate FiO2 10/13/21 08:00 36.5 89 20 109/58 (75) 99 Room Air 10/13/21 06:19 20 10/13/21 04:00 37.2 69 20 97/58 (71) 98 Room Air 10/13/21 00:00 36.5 79 18 106/62 (77) 98 Room Air 10/12/21 21:00 Room Air 10/12/21 19:54 36.4 85 18 97/60 (72) 96 Room Air 10/12/21 16:00 36.6 80 18 101/63 (76) 96 Room Air 10/12/21 11:55 36.2 78 20 116/56 (76) 93 Room Air 10/12/21 09:00 Room Air I & O 10/13/21 07:00 Intake Total 1520 ml Balance 1520 ml General Appearance: No Apparent Distress, WD/WN HEENT: PERRL/EOMI, Moist Mucous Membranes Neck: Normal Inspection, Supple Respiratory: Lungs Clear, Normal Breath Sounds, No Accessory Muscle Use, No Respiratory Distress Cardiovascular: Regular Rate, Rhythm, Normal Peripheral Pulses Gastrointestinal: Normal Bowel Sounds, Non Tender, Soft Extremity: Normal Capillary Refill, Other (S/P R Knee total arthroplasty, knee is wrapped) Neurologic/Psychiatric: Alert, Oriented x3, Normal Mood/Affect Skin: Normal Color, Warm/Dry Results Lab Laboratory Tests 10/13/21 05:20: Hemoglobin 9.9L, Hematocrit 31L Assessment/Plan Assessment/Plan Assessment and Plan S/P RTKA DC morphine this morning, will see if Percocet gives adequate pain relief Radiographs--HW well positioned without fracture No sign of infx Patient tolerating regular diet, no longer needs IV fluids Monitor Hgb, 9.9 today Continue PT/OT Hypothyroidism Restart Synthroid DVT PPX Lovenox JESSIE JHAVERI Oct 13, 2021 08:28
[2021-10-13] MEDS: SENNA W/DOCUSATE (SENOKOT S) TABLET PO SCH (08:51)
[2021-10-13] MEDS: dilTIAZem120 MG (CARDIZEM CD) CAP PO SCH (08:51)
[2021-10-13] MEDS: ASPIRIN E.C. 81 MG (ECOTRIN) TAB PO SCH (08:51)
[2021-10-13] MEDS: ENOXAPARIN 30 MG/0.3 ML (LOVENOX) SYR SC SCH (08:52)
--- NOTE | 2021-10-13 08:53 | DISCHARGE SUMMARY ---
DATE OF SERVICE: DIAGNOSES: 1. Right knee primary osteoarthritis. 2. Diabetes. 3. Hypertension. 4. Hypothyroidism. 5. Sleep apnea. PROCEDURE: Right total knee arthroplasty. SUMMARY: The patient is a 61-year-old female who underwent a right total knee arthroplasty on the day of admission. Postoperatively, she did well. At the time of discharge, her wound was clean and dry. She had no calf tenderness. Negative Homans sign. She was tolerating diet well and tolerating pain with oral pain medication. CONDITION AT DISCHARGE: Good. DISCHARGE DIET: Regular. FOLLOWUP: Followup is in 3 weeks. DISCHARGE MEDICATIONS: Home medications, one aspirin per day for 30 days and Percocet as needed for pain. ACTIVITIES: Weightbearing as tolerated with a walker. Job ID: [id number] DocumentID: [id number] Dictated Date: 10/12/2021 15:36:12 Field Gauger Date: 10/13/2021 08:53:36 Dictated By: REJI ANTONY MD
--- NOTE | 2021-10-13 10:52 | Physical Therapy Daily Note ---
PT Daily Note-Current Subjective Patient is in tears due to pain. RN notified. Pain Numeric Pain Scale: 8 Location: Right Location Body Site: Knee Pain Description: Acute Mental Status Patient Orientation: Normal For Age Transfers SCALE: Activities may be completed with or without assistive devices. 4-Mnwlpmqdei-cszxluy completes the activity by him/herself with no assistance from a helper. 5-Set-up or Clean-up Assistance-helper sets up or cleans up; patient completes activity. [place] assists only prior to or following the activity. 4-Supervision or Touching Assistance-helper provides verbal cues and/or touching/steadying and/or contact guard assistance as patient completes activity. Assistance may be provided throughout the activity or intermittently. 3-Partial/Moderate Assistance-helper does LESS THAN HALF the effort. [place] lifts, holds or supports trunk or limbs, but provides less than half the effort. 2-Substantial/Maximal Assistance-helper does MORE THAN HALF the effort. [place] lifts or holds trunk or limbs and provides more than half the effort. 2-Apyxvjjyi-mekgbl does ALL the effort. Patient does none of the effort to complete the activity. Or, the assistance of 2 or more helpers is required for the patient to complete the activity. If activity was not attempted, code reason: 7-Patient Refused. 9-Not Applicable-not attempted and the patient did not perform the activity before the current illness, exacerbation or injury. 10-Not Attempted due to Environmental Limitations-(lack of equipment, weather restraints, etc.). 88-Not Attempted due to Medical Conditions or Safety Concerns. Sit to Stand (QC): 6 Weight Bearing Right Lower Extremity: Right Weight Bearing/Tolerated Gait Training Does the Patient Walk?: Yes Distance: 400' Walk 10 feet (QC): 6 Walk 50 ft with 2 Turns(QC): 6 Walk 150 ft (QC): 6 Gait Assistive Device: FWW slow, antalgic, reciprocal pattern Stair Training Stair Training: Handrails/: 1 handrail, uses walker #of Steps: 4 1 Step (curb) (QC): 4 Stairs: Pattern: Step to SBA for safety Exercises Seated Therapy Exercises: Ankle pumps, Long arc quads Seated Reps: 15 (2 sets) Assessment Patient tolerated treatment well and remains up in recliner. Patient voices frustration with pain management and is very tearful. Education with patient on the importance of performing exercises issued by physician 3/day at 10-15 reps and to ambulate PRN in hallway every hour here and at home. Patient performs all activity safely and has attained goals, with exception of 12 steps. PT to dismiss patient from services at this time with patient dismissing to home on this date. PT Fci Goals Fci Goals PT [facility] Goals Time Frame: Oct 25, 2021 Roll Left & Right (QC): 6 Sit to Lying (QC): 6 Lying-Sitting on Side/Bed(QC): 6 Sit to Stand (QC): 6 Chair/Dae-vt-Tbbxw Xfer(QC): 6 Toilet Transfer (QC): 6 Car Transfer (QC): 6 Does the Patient Walk: Yes Walk 10 feet (QC): 5 Walk 50ft with 2 Turns (QC): 5 Walk 150 ft (QC): 5 1 Step (curb) (QC): 4 4 Steps (QC): 4 12 Steps (QC): 4 PT Plan Treatment/Plan Treatment Plan: Discontinue PT Treatment Plan: Bed Mobility, Education, Functional Activity Judah, Functional Strength, Group Therapy, Gait, Safety, Therapeutic Exercise, Transfers Treatment Duration: Nov 29, 2021 Frequency: 11 times per week Estimated Hrs Per Day: .25 hour per day Patient and/or Family Agrees t: Yes Time/GCodes Time In: 815 Time Out: 845 Total Billed Treatment Time: 30 Total Billed Treatment 1 visit EX 10 min FA 15 min LORETTA FOSTER PT Oct 13, 2021 10:52
[2021-10-13 12:00] VITALS: BP 117/57
[2021-10-13 15:29] VITALS: BP 107/63
[2021-10-13 16:14] VITALS: BP 107/63
== END 2021-10-13 16:14 | disposition home health service (06) | DRG 470 ==
LOC: 4TH 10-11 07:24 → SURG 10-11 07:25 → 4TH 10-11 12:14
PROVIDERS: ADMIT Orthopaedic Surgery; ATTEND Orthopaedic Surgery
PROC: 0SRC0J9 Replacement of Right Knee Joint with Synthetic Substitute, Cemented, Open Approach (ICD-10-PCS; principal; 2021-10-11 09:32)
PROC: 5A09357 Assistance with Respiratory Ventilation, Less than 24 Consecutive Hours, Continuous Positive Airway Pressure (ICD-10-PCS; 2021-10-12)
DX: M17.11 Unilateral primary osteoarthritis, right knee (principal); E11.9 Type 2 diabetes mellitus without complications; I10 Essential (primary) hypertension; E03.9 Hypothyroidism, unspecified; G47.30 Sleep apnea, unspecified; Z79.890 Hormone replacement therapy; Z79.84 Long term (current) use of oral hypoglycemic drugs; Z79.899 Other long term (current) drug therapy
CPT/HCPCS: 36415; 73560; 85014; 85018; 86850; 86900; 86901

== ENCOUNTER 2021-10-09 05:38 | Outpatient (RCR) | payer BC ==
[2021-09-28 13:55] VITALS: BP 123/77
--- NOTE | 2021-09-28 14:51 | Diagnostic Imaging Report ---
INDICATION: Preoperative evaluation, right knee replacement. COMPARISON: July 16, 2016. TECHNIQUE: Two radiographs of the chest dated September 28, 2021. FINDINGS: Postsurgical changes are again noted within the partially visualized cervical spine. Surgical changes with surgical clips are also noted within the upper abdomen bilaterally. The cardiac silhouette is within normal limits in size. No significant pulmonary vascular congestion. The lungs are clear. No pleural effusion. No pneumothorax. Mild scattered osseous degenerative changes without acute osseous abnormality. IMPRESSION: No acute cardiopulmonary abnormality with postsurgical changes as described above. Dictated by: Dictated on workstation # [id number]
[2021-09-28 15:02] LABS: BILIRUBIN,URINE NEGATIVE (NEGATIVE); CLARITY,URINE CLEAR; COLOR,URINE YELLOW; GLUCOSE, URINE (UA) NEGATIVE (NEGATIVE); KETONES,URINE NEGATIVE (NEGATIVE); LEUKOCYTE ESTERASE ,URINE 1+ (NEGATIVE); NITRITE,URINE NEGATIVE (NEGATIVE); PROTEIN,URINE NEGATIVE (NEGATIVE)
[2021-09-28 15:04] LABS: BASOPHILS # (AUTO) 0.1 10^3/uL (0.0-0.1); BASOPHILS % (AUTO) 1 % (0-10); EOSINOPHILS # (AUTO) 0.1 10^3/uL (0.0-0.3); EOSINOPHILS % (AUTO) 2 % (0-10); HEMATOCRIT 41 % (35-52); HEMOGLOBIN 13.2 g/dL (11.5-16.0); LYMPHOCYTES # (AUTO) 2.2 10^3/uL (1.0-4.0); LYMPHOCYTES % (AUTO) 28 % (12-44); MEAN CORPUSCULAR HEMOGLOBIN 30 pg (25-34); MEAN CORPUSCULAR HGB CONC 33 g/dL (32-36); MEAN CORPUSCULAR VOLUME 90 fL (80-99); MONOCYTES # (AUTO) 0.6 10^3/uL (0.0-1.0); MONOCYTES % (AUTO) 7 % (0-12); NEUTROPHILS # (AUTO) 4.9 10^3/uL (1.8-7.8); NEUTROPHILS % (AUTO) 62 % (42-75); PLATELET COUNT 210 10^3/uL (130-400); WHITE BLOOD COUNT 7.9 10^3/uL (4.3-11.0)
[2021-09-28 15:12] LABS: ALBUMIN 3.9 GM/DL (3.2-4.5)
[2021-09-28 15:13] LABS: POTASSIUM 3.7 MMOL/L (3.6-5.0)
[2021-09-28 15:13] LABS: BACTERIA,URINE NEGATIVE /HPF; WBC,URINE RARE /HPF
[2021-09-28 15:14] LABS: CALCIUM 9.8 MG/DL (8.5-10.1); INR 0.9 (0.8-1.4); PROTHROMBIN TIME PATIENT 12.7 SEC (12.2-14.7)
[2021-09-28 15:15] LABS: TOTAL PROTEIN 7.2 GM/DL (6.4-8.2)
[2021-09-28 15:17] LABS: BILIRUBIN,TOTAL 0.4 MG/DL (0.1-1.0)
[2021-09-28 15:19] LABS: CREATININE SERUM 0.98 MG/DL (0.60-1.30)
[2021-09-28 15:43] LABS: ERYTHROCYTE SEDIMENTATION RATE 16 MM/HR (0-30)
[~2021-10-09] VITALS: Ht 162.6 cm; Wt 76.7 kg
[~2021-10-09 05:38] MED LIST changes: +LEVO137T2 PO; +LIOTHYSO5 PO; +[UNRECOGNIZED DRUG - CODE] TL
== END 2021-10-09 09:26 | disposition home or self-care (01) ==
LOC: PREOP 05:38
PROVIDERS: ATTEND Orthopaedic Surgery
DX: Z01.818 Encounter for other preprocedural examination (principal); M17.11 Unilateral primary osteoarthritis, right knee; R53.83 Other fatigue; Z11.2 Encounter for screening for other bacterial diseases; Z20.822 Contact with and (suspected) exposure to COVID-19
CPT/HCPCS: 36415; 71046; 80053; 81000; 85025; 85610; 85652; 86850; 86900; 86901; 87081; 87635; 93005

== ENCOUNTER 2021-11-30 08:06 | Outpatient (RCR) | payer BC | END 2021-12-01 | disposition home or self-care (01) | PROVIDERS: ATTEND Orthopaedic Surgery | DX: Z47.1 Aftercare following joint replacement surgery (principal); I10 Essential (primary) hypertension; E11.9 Type 2 diabetes mellitus without complications; Z96.651 Presence of right artificial knee joint; Z98.1 Arthrodesis status ==

== ENCOUNTER 2021-12-29 16:21 | Outpatient (RCR) | payer BC | END 2022-01-01 | disposition home or self-care (01) | PROVIDERS: ATTEND Orthopaedic Surgery | DX: Z47.1 Aftercare following joint replacement surgery (principal); I10 Essential (primary) hypertension; E11.9 Type 2 diabetes mellitus without complications; Z96.651 Presence of right artificial knee joint; Z98.1 Arthrodesis status ==

== ENCOUNTER 2022-01-26 15:46 | Outpatient (RCR) | payer BC | END 2022-01-29 | disposition home or self-care (01) | PROVIDERS: ATTEND Orthopaedic Surgery | DX: Z47.1 Aftercare following joint replacement surgery (principal); I10 Essential (primary) hypertension; E11.9 Type 2 diabetes mellitus without complications; Z96.651 Presence of right artificial knee joint; Z98.1 Arthrodesis status ==

== ENCOUNTER 2022-02-16 16:04 | Outpatient (RCR) | payer BC | END 2022-03-01 | disposition home or self-care (01) | PROVIDERS: ATTEND Orthopaedic Surgery | DX: M17.11 Unilateral primary osteoarthritis, right knee (principal); I10 Essential (primary) hypertension; E11.9 Type 2 diabetes mellitus without complications; Z96.651 Presence of right artificial knee joint; Z98.1 Arthrodesis status ==

== ENCOUNTER → 2022-03-23 | Outpatient (CLI) | payer BC ==
--- NOTE | 2022-03-26 12:23 | Diagnostic Imaging Report ---
INDICATION: Routine screening. COMPARISON: 02/08/2021 and 12/22/2019. TECHNIQUE: 2D and 3D bilateral screening mammography was performed with CAD. FINDINGS: Scattered fibroglandular densities are identified bilaterally. The parenchymal pattern is stable. No mass or malignant-appearing microcalcifications are seen. There are benign calcifications bilaterally. The axillae are unremarkable. IMPRESSION: No mammographic features suspicious for malignancy are identified. ACR BI-RADS Category 2: Benign findings. Result letter will be mailed to the patient. Note: At least 10% of breast cancer is not imaged by mammography. Dictated by: Dictated on workstation # [id number]
== END ==
LOC: RAD 15:45
PROVIDERS: ATTEND Family Medicine
DX: Z12.31 Encounter for screening mammogram for malignant neoplasm of breast (principal)
CPT/HCPCS: 77063; 77067

== ENCOUNTER 2023-08-04 14:22 | Emergency (ER) | payer BC ==
[~2023-08-04] VITALS: Ht 162.6 cm; Wt 77.1 kg
[~2023-08-04 14:22] MED LIST changes: +LEVO750T PO; -LEVO750T39 PO; +MONT-47 PO; -MONT10TA21 PO
[2023-08-04 14:58] LABS: BASOPHILS # (AUTO) 0.1 10^3/uL (0.0-0.1); BASOPHILS % (AUTO) 1 % (0-10); EOSINOPHILS # (AUTO) 0.1 10^3/uL (0.0-0.3); EOSINOPHILS % (AUTO) 1 % (0-10); HEMATOCRIT 43 % (35-52); HEMOGLOBIN 13.8 g/dL (11.5-16.0); LYMPHOCYTES # (AUTO) 1.7 10^3/uL (1.0-4.0); LYMPHOCYTES % (AUTO) 22 % (12-44); MEAN CORPUSCULAR HEMOGLOBIN 29 pg (25-34); MEAN CORPUSCULAR HGB CONC 32 g/dL (32-36); MEAN CORPUSCULAR VOLUME 90 fL (80-99); MEAN PLATELET VOLUME 10.7 fL (9.0-12.2); MONOCYTES # (AUTO) 0.5 10^3/uL (0.0-1.0); MONOCYTES % (AUTO) 7 % (0-12); NEUTROPHILS # (AUTO) 5.4 10^3/uL (1.8-7.8); NEUTROPHILS % (AUTO) 69 % (42-75); PLATELET COUNT 265 10^3/uL (130-400); WHITE BLOOD COUNT 7.8 10^3/uL (4.3-11.0)
--- NOTE | 2023-08-04 15:04 | ED Abdominal Pain ---
General Chief Complaint: Abdominal/GI Problems Stated Complaint: AB/BACK PAIN Nursing Triage Note: PT AMBULATE TO ROOM 06 WITHOUT DIFFICULTY WITH C/O ABD AND BACK STARTING YESTERDAY. PT DENIES N/V/D. PT REPORTS TAKING TYLENOL FOR PAIN. 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 Pain st arted yesterday morning. Rates pain 6 out of 10. Pain is located in her upper abdomen and radiates across the right side into her mid upper back. Pain is described as more pressure and constant. Denies of any specific chest pain or shortness of breath or cough. Pain seems to be worse when she eats. She attempted some NitroMist as she has a history of nutcracker esophagus but did not have any relief. She is currently on Bactrim for UTI without any urinary symptoms. Denies history of GERD, peptic ulcers. Denies of any nausea vomiting diarrhea. Seems to be worse with movement. She did have some pain in her right-sided flank a few weeks ago but tend to improve with heat rest and stretching. She denies fever, chills, headache, dizziness, sore throat, ear pain, distal numbness and tingling. Denies any recent travels or surgeries. Denies history of coronary artery disease. Allergies and Home Medications Allergies Coded Allergies: No Known Drug Allergies (Unverified , 10/03/17) Patient Home Medication List Home Medication List Reviewed: Yes Bupropion HCl (Bupropion Xl) 300 Mg Tab.er.24h, 300 MG PO DAILY, (Reported) Entered as Reported by: ALISA RDZ on 10/03/17 1505 Diltiazem HCl (Cartia Xt) 120 Mg Cap.er.24h, 120 MG PO DAILY, (Reported) Entered as Reported by: ALISA RDZ on 10/03/17 1505 Dulaglutide (Trulicity) 1.5 Mg/0.5 Ml Pen.injctr, 1.5 MG SQ WEEKLY, (Reported) Entered as Reported by: ALISA RDZ on 10/03/17 1505 Hydrochlorothiazide (Hydrochlorothiazide) 25 Mg Tablet, 25 MG PO DAILY, (Reported) Entered as Reported by: MEERA GUERRA on 07/17/16 0816 Levothyroxine Sodium (Levothyroxine Sodium) 137 Mcg Tablet, 137 MCG PO DAILY, (Reported) Entered as Reported by: MEGGAN SMITH on 09/28/21 1504 Liothyronine Sodium (Cytomel) 5 Mcg Tablet, 5 MCG PO MoWeFr, (Reported) Entered as Reported by: MEGGAN SMITH on 09/28/21 1504 Methocarbamol (Methocarbamol) 750 Mg Tablet, 750 MG PO Q6-8HR Prescribed by: ALVARADO TYLER on 08/04/23 1641 Nitroglycerin (Nitromist) 4.1 Gm Reagan, 1 SPRAY TL UD PRN for ESOPHAGEAL SPASMS, (Reported) Entered as Reported by: MEGGAN SMITH on 09/28/21 1504 Pantoprazole Sodium (Protonix) 40 Mg Tablet.dr, 40 MG PO DAILY Prescribed by: ALVARADO TYLER on 08/04/23 1641 Discontinued Medications Hydrocodone/Acetaminophen (Hydrocodone-Acetamin 5-325 mg) 5 Mg-325 Mg Tablet, 1 TAB PO Q4H PRN for PAIN-MODERATE (5-7) Prescribed by: ALVARADO TYLER on 08/04/23 1642 Review of Systems Review of Systems Constitutional: No chills, No diaphoresis EENTM: No Double Vision, No Eye Pain Respiratory: Denies Cough, Denies Orthopnea Gastrointestinal: Abdominal Pain; Denies Diarrhea, Denies Nausea, Denies Vomiting Genitourinary: Denies See HPI, Denies Burning, Denies Discharge, Denies Drainage, Denies Frequency Musculoskeletal: back pain Skin: No change in hair/nails All Other Systems Reviewed Negative Unless Noted: Yes Past Knzqkfe-Mlmyjb-Ymnpwy Hx Patient Social History Tobacco Use?: No Smoking Status: Never a Smoker Smokeless Tobacco Frequency: Never a User Use of E-Cig and/or Vaping dev: No Use of E-Cig and/or Vaping Terry: Never a User Substance use?: No Alcohol Use?: No Pt feels they are or have been: No Immunizations Up To Date Tetanus Booster (TDap): Unknown PED Vaccines UTD: Yes First/Initial COVID19 Vaccinat: march COVID19 Vaccination Sincere: march COVID19 Vaccination Date: march Seasonal Allergies Seasonal Allergies: Yes Past Medical History Surgeries: Yes (NECK FUSION, c/s x4, ectopic pregancy, knee scope x4, CTR, sinus sx, ) Section, Gallbladder, Hysterectomy, Orthopedic Respiratory: Yes (2000-[facility] Pulmonary Embolism, Sleep Apnea Currently Using CPAP: Yes Cardiac: Yes Hypertension Neurological: No Reproductive Disorders: No Female Reproductive Disorders: Denies 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 Sexually Transmitted Disease: No HIV/AIDS: No Genitourinary: Yes UTI-Chronic Gastrointestinal: Yes Gastroesophageal Reflux, Diverticulosis Musculoskeletal: Yes (R knee osteoarthritis) Degenerate Disk Disease, Back Injury Endocrine: Yes Hypothyroidsim, Diabetes, Non-Insulin dep HEENT: Yes (glasses, crowns x2) Loss of Vision: Bilateral Hearing Impairment: Denies Cancer: No Psychosocial: Yes Depression Integumentary: No Blood Disorders: No Adverse Reaction/Blood Tranf: No (HAS HAD BLOOD WITH NO REACTION) Family Medical History Heart Disease, Hypertension Physical Exam Vital Signs Vital Signs - First Documented 08/04/23 08/04/23 14:41 17:05 Temp 37.3 Pulse 87 Resp 19 B/P (MAP) 141/91 (108) Pulse Ox 96 O2 Delivery Room Air Capillary Refill : Less Than 3 Seconds Height/Weight/BMI Height: 5'5.00" Weight: 194lbs. 4.0oz. [id number]; 29.00 BMI Method:Stated General Appearance: WD/WN, no apparent distress HEENT: PERRL/EOMI, normal ENT inspection, TMs normal, pharynx normal Neck: non-tender, full range of motion, supple Respiratory: chest non-tender, lungs clear, normal breath sounds, no respiratory distress, no accessory muscle use Cardiovascular: regular rate, rhythm, no edema, no gallop, no JVD Gastrointestinal: normal bowel sounds, non tender, soft, no organomegaly Extremities: normal range of motion, non-tender, normal inspection, no pedal edema, no calf tenderness Back: normal inspection, no CVA tenderness, no vertebral tenderness Neurologic/Psychiatric: returns supervisor II-XII nml as tested, no motor/sensory deficits, alert, normal mood/affect, oriented x 3 Skin: normal color, warm/dry Progress/Results/Core Measures Results/Orders Lab Results Laboratory Tests Test 08/04/23 14:45 08/04/23 15:01 08/04/23 15:44 Range/Units White Blood Count 7.8 4.3-11.0 10^3/uL Red Blood Count 4.77 3.80-5.11 10^6/uL Hemoglobin 13.8 11.5-16.0 g/dL Hematocrit 43 35-52 % Mean Corpuscular Volume 90 80-99 fL Mean Corpuscular Hemoglobin 29 25-34 pg Mean Corpuscular Hemoglobin Concent 32 32-36 g/dL Red Cell Distribution Width 12.6 10.0-14.5 % Platelet Count 265 130-400 10^3/uL Mean Platelet Volume 10.7 9.0-12.2 fL Immature Granulocyte % (Auto) 0 % Neutrophils (%) (Auto) 69 42-75 % Lymphocytes (%) (Auto) 22 12-44 % Monocytes (%) (Auto) 7 0-12 % Eosinophils (%) (Auto) 1 0-10 % Basophils (%) (Auto) 1 0-10 % Neutrophils # (Auto) 5.4 1.8-7.8 10^3/uL Lymphocytes # (Auto) 1.7 1.0-4.0 10^3/uL Monocytes # (Auto) 0.5 0.0-1.0 10^3/uL Eosinophils # (Auto) 0.1 0.0-0.3 10^3/uL Basophils # (Auto) 0.1 0.0-0.1 10^3/uL Immature Granulocyte # (Auto) 0.0 0.0-0.1 10^3/uL Sodium Level 137 135-145 MMOL/L Potassium Level 4.1 3.6-5.0 MMOL/L Chloride Level 103 98-107 MMOL/L Carbon Dioxide Level 22 21-32 MMOL/L Anion Gap 12 5-14 MMOL/L Blood Urea Nitrogen 20 H 7-18 MG/DL Creatinine 1.22 0.60-1.30 MG/DL Estimat Glomerular Filtration Rate 50 BUN/Creatinine Ratio 16 Glucose Level 134 H 70-105 MG/DL Calcium Level 10.0 8.5-10.1 MG/DL Corrected Calcium 9.8 8.5-10.1 MG/DL Total Bilirubin 1.0 0.1-1.0 MG/DL Aspartate Amino Transf (AST/SGOT) 1049 H 5-34 U/L Alanine Aminotransferase (ALT/SGPT) 731 H 0-55 U/L Alkaline Phosphatase 218 H 40-136 U/L Troponin I < 0.028 <0.028 NG/ML Total Protein 8.2 6.4-8.2 GM/DL Albumin 4.3 3.2-4.5 GM/DL Lipase 28 8-78 U/L Hepatitis A IgM Antibody Non-Reactive Non-Reactive Hepatitis B Surface Antigen Non-Reactive Non-Reactive Hepatitis B Core IgM Antibody Non-Reactive Non-Reactive Hepatitis C Antibody Non-Reactive Non-Reactive Urine Color DARK YELLOW Urine Clarity CLEAR Urine pH 6 5-9 Urine Specific [place] >=1.030 1.016-1.022 Urine Protein NEGATIVE NEGATIVE Urine Glucose (UA) NEGATIVE NEGATIVE Urine Ketones NEGATIVE NEGATIVE Urine Nitrite NEGATIVE NEGATIVE Urine Bilirubin 1+ H NEGATIVE Urine Urobilinogen 4.0 < = 1.0 MG/DL Urine Leukocyte Esterase NEGATIVE NEGATIVE Urine RBC (Auto) NEGATIVE NEGATIVE Urine RBC NONE /HPF Urine WBC NONE /HPF Urine Crystals NONE /LPF Urine Bacteria NEGATIVE /HPF Urine Casts NONE /LPF Urine Mucus NEGATIVE /LPF Urine Culture Indicated NO Serum Alcohol < 10 <10 MG/DL My Orders Orders - ALBERT TEJADA PA Ua Culture If Indicated (08/04/23 14:45) Cbc With Automated Diff (08/04/23 14:51) Comprehensive Metabolic Panel (08/04/23 14:51) Lipase (08/04/23 14:51) Troponin I God[place] (08/04/23 14:51) Ekg Tracing (08/04/23 14:51) Chest 1 View, Ap/Pa Only (08/04/23 14:51) Ct Abdomen/Pelvis W (08/04/23 14:51) Lidocaine 2% Viscous 15 Ml (Xylocaine Vi (08/04/23 15:15) Antacid Suspension (Antacid Suspension (08/04/23 15:15) Iohexol Injection (Omnipaque 350 Mg/Ml 1 (08/04/23 15:30) Ns (Ivpb) 100 Ml (Sodium Chloride 0.9% 1 (08/04/23 15:30) Alcohol (08/04/23 15:42) Hepatitis Panel Acute (08/04/23 16:00) Orphenadrine Inj (Ed Only) (Orphenadrine (08/04/23 17:00) Ketorolac Injection (Ketorolac Injection (08/04/23 17:00) Medications Given in ED Vital Signs/I&O 08/04/23 08/04/23 14:41 17:05 Temp 37.3 Pulse 87 69 Resp 19 18 B/P (MAP) 141/91 (108) 123/58 Pulse Ox 96 O2 Delivery Room Air Room Air Blood Pressure Mean: 108 Comment Sinus rhythm with low QRS voltage in pericardial leads, 78 bpm, QRS duration 96 MS, QTc 411 MS Departure Communication (PCP) Differential diagnosis, peptic ulcer, pancreatitis, gastritis, esophagitis, hepatitis colitis, nephrolithiasis, ACS. Upper abdominal pain started yesterday constant. Rates pain 6 out of 10. Also has pain of her right flank. No urinary symptoms currently on Bactrim for uti started last week. CBC, CMP, troponin, lipase, urinalysis chest x-ray EKG troponin and CT abd and pelvis was ordered. CBC, CMP was grossly unremarkable besides elevated liver enzyme AST at 1049, ALT 738, alk phos 218. Normal lipase, troponin. EKG without evidence of ST elevation or depression or arrhythmia. Troponin negative. Chest x-ray unremarkable. This appears acute change of her liver enzymes. Only recent raul nge in medication is Bactrim. She denies statin. Does not appear to be on any other toxicity medication to the liver. Denies alcohol with normal alcohol level. CT abdomen and pelvis was ordered which was unremarkable. Received a GI cocktail without much improvement. Patient received Toradol and Norflex with some improvement. The pain in the back appears to be on more muscle spasming as it seems to be more positional. Her urinalysis was negative for infection. There is no evidence of nephrolithiasis. History of cholecystectomy. other etiologies of this upper abdominal pain would be gastritis, esophagitis, GERD. Cardiac work-up unremarkable. Does have cardiac risk factors but does not clinically appear cardiac. she does have a history of gastric sleeve and hiatal hernia. She did take Pepcid a few days ago without much improvement. Suggest starting on Protonix 40 mg. Avoiding fatty foods spicy foods. Did add a hepatitis panel. She is tolerating p.o. fluids without vomiting or diarrhea. She does not appear toxic or septic. Unclear etiology of her elevated liver enzymes. Suggest stopping the Bactrim at this time. Follow-up with your PCP 1 to 2 days for recheck of liver enzymes. If any worsening pain, vomiting fever to return back to ED. Upper EGD may be warranted for further evaluation. 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 She states she has been using a spray without much improvement. She does not have burning sensation in the chest or dysphagia or chest pain suggesting nutcracker esophagus. If any worsening symptoms such as fever, vomiting, worsening abdominal pain to return back to ED. Need a recheck of liver enzymes. Impression Primary Impression: Back spasm Additional Impression: Upper abdominal pain Disposition: HOME, SELF-CARE Condition: Stable Departure-Patient Inst. Decision time for Depature: 16:40 Referrals: SOHEILA ABERNATHY MD (PCP) Primary Care Physician KHADRA ORELLANA DO Patient Instructions: Muscle Spasm ED Add. Discharge Instructions: Recommend Robaxin to help with muscle spasm. Recommend heat. May consider Protonix for the upper abdomen pain. Avoid any spicy foods. Recommend following up with your primary care physician on Saturday to discuss liver enzymes. If any worsening symptoms return back to ED for further evaluation. May need to consider upper EGD for further evaluation of the abdominal pain All discharge instructions reviewed with patient and/or family. Voiced understanding. Scripts Methocarbamol (Methocarbamol) 750 Mg Tablet 750 MG PO Q6-8HR for Back Pain, #16 TAB Prov: ALBERT TEJADA 08/04/23 Pantoprazole Sodium (Protonix) 40 Mg Tablet. 40 MG PO DAILY for Abdominal Pain, #20 TAB Prov: ALBERT TEJADA 08/04/23 ALBERT TEJADA Aug 04, 2023 15:03
[2023-08-04] MEDS ORDERED: LIDOCAINE 2% VISCOUS 15 ML UDC PO ONE (15:15)
[2023-08-04] MEDS ORDERED: ANTACID SUSPENSION 30 ML UDC PO ONE (15:15)
[2023-08-04 15:22] LABS: ALANINE AMINOTRANSFERASE 731 U/L (0-55); ALBUMIN 4.3 GM/DL (3.2-4.5); ALKALINE PHOSPHATASE 218 U/L (40-136); BUN/CREATININE RATIO 16; CARBON DIOXIDE 22 MMOL/L (21-32); CHLORIDE 103 MMOL/L (98-107); CREATININE SERUM 1.22 MG/DL (0.60-1.30); GFR ESTIMATED 50; GLUCOSE 134 MG/DL (70-105); LIPASE 28 U/L (8-78); POTASSIUM 4.1 MMOL/L (3.6-5.0); SODIUM 137 MMOL/L (135-145); TOTAL PROTEIN 8.2 GM/DL (6.4-8.2)
[2023-08-04] MEDS ORDERED: IOHEXOL 350 MG/ML 100 ML (OMNIPAQUE 350) VIAL IV ONE (15:30)
[2023-08-04] MEDS ORDERED: NS 100 ML (IVPB) BAG IV ONE (15:30)
[2023-08-04 15:31] LABS: CLARITY,URINE CLEAR; COLOR,URINE DARK YELLOW; GLUCOSE, URINE (UA) NEGATIVE (NEGATIVE); KETONES,URINE NEGATIVE (NEGATIVE); NITRITE,URINE NEGATIVE (NEGATIVE); PH,URINE 6 (5-9); PROTEIN,URINE NEGATIVE (NEGATIVE)
[2023-08-04 15:32] LABS: BACTERIA,URINE NEGATIVE /HPF; BILIRUBIN,URINE 1+ (NEGATIVE); LEUKOCYTE ESTERASE ,URINE NEGATIVE (NEGATIVE)
--- NOTE | 2023-08-04 15:54 | Diagnostic Imaging Report ---
PROCEDURE: CT abdomen and pelvis with contrast. TECHNIQUE: Multiple contiguous axial images were obtained through the abdomen and pelvis after administration of intravenous contrast. Auto Exposure Controls were utilized during the CT exam to meet ALARA standards for radiation dose reduction. All CT scans use one or more of the following dose optimizing techniques: automated exposure control, MA and/or KvP adjustment based on patient size and exam type or iterative reconstruction. INDICATION: Abdominal and back pain starting yesterday. COMPARISON: None. FINDINGS: Included views of the lung bases demonstrate no significant abnormality. Post cholecystectomy changes. The liver, spleen, and adrenal glands, and pancreas are normal. The kidneys are normal. No nephrolithiasis or hydronephrosis. The bowel is nondilated. No free air, loculated fluid collection, or ascites. Scattered diverticula within the sigmoid colon without evidence of acute diverticulitis. The urinary bladder is normal. The aorta and IVC are normal in caliber. There is aortic atherosclerosis. Moderate multilevel degenerative changes of the lumbar spine with moderate spinal canal stenosis at L4-L5. IMPRESSION: No acute findings in the abdomen or pelvis. Moderate degenerative changes of the lumbar spine. Dictated by: Dictated on workstation # [id number]
--- NOTE | 2023-08-04 15:59 | Diagnostic Imaging Report ---
CHEST 1 VIEW, AP/PA ONLY INDICATION: chest pain. COMPARISON: Chest radiograph on 07/14/2016. FINDINGS: Lungs: Normal lung volume. No focal consolidation. Stable pulmonary vasculature. Pleura: No pleural effusion or pneumothorax. Heart and Mediastinum: Cardiomediastinal silhouette and great vessels of the thorax are stable. Osseous Structures and Soft Tissues: No acute osseous abnormality. Normal soft tissues. IMPRESSION: No acute cardiopulmonary process. Dictated by: Dictated on workstation # [id number]
[2023-08-04] MEDS ORDERED: ACHD5005 PO (16:41)
[2023-08-04] MEDS ORDERED: PANT40TA2 PO (16:41)
[2023-08-04] MEDS ORDERED: METH-732 PO (16:41)
[2023-08-04] MEDS ORDERED: ORPHENADRINE 60 MG/2 ML AMP (ED ONLY) IM ONE ×2 (16:45→17:00)
[2023-08-04] MEDS ORDERED: KETOROLAC INJ 30 MG/ML VIAL IM ONE (16:45)
[2023-08-04] MEDS ORDERED: KETOROLAC INJ 15 MG/ML VIAL IV STA (16:51)
[2023-08-04] MEDS ORDERED: KETOROLAC INJ 30 MG/ML VIAL IVP ONE (17:00)
[2023-08-04 17:05] VITALS: BP 123/58
[2023-08-05 18:58] LABS: HEPATITIS C ANTIBODY C Non-Reactive (Non-Reactive)
== END 2023-08-04 17:06 | disposition home or self-care (01) ==
LOC: EDUNIT# 14:22 → ER 14:24
DX: M62.830 Muscle spasm of back (principal); R10.10 Upper abdominal pain, unspecified; G47.30 Sleep apnea, unspecified; Z99.89 Dependence on other enabling machines and devices
CPT/HCPCS: 71045; 74177; 80053; 80074; 81000; 83690; 84484; 85025; 93005; 99284; G0480; 36415; 80320

== ENCOUNTER → 2023-09-24 | Outpatient (CLI) | payer BC ==
[~2023-09-24] MED LIST changes: +ACHD5005 PO; +METH-732 PO; +PANT40TA2 PO
--- NOTE | 2023-09-24 14:11 | Diagnostic Imaging Report ---
INDICATION: Routine screening. Comparison is made with prior mammogram from 03/21/2022 and 02/08/2021. 2-D and 3-D bilateral screening mammography was performed with CAD. Scattered fibroglandular densities are identified bilaterally. The parenchymal pattern is stable. There are scattered benign calcifications bilaterally. No mass or malignant-appearing microcalcifications are seen. Axillae are unremarkable. IMPRESSION: No mammographic features suspicious for malignancy are identified. ACR BI-RADS Category 2: Benign findings. Result letter will be mailed to the patient. Note: At least 10% of breast cancer is not imaged by mammography. BI-RADS Category 2 Dictated by: Dictated on workstation # [id number]
== END ==
LOC: RAD 08:15
PROVIDERS: ATTEND Family Medicine
DX: Z12.31 Encounter for screening mammogram for malignant neoplasm of breast (principal)
CPT/HCPCS: 77063; 77067